=== PATIENT | female | born 1975 | race Caucasian/White ===

== ENCOUNTER 2022-05-23 14:38 | Emergency (ER) | payer BC, SELFPAY ==
[2022-05-23 16:03] VITALS: BP 0/0; PULSE 0; RESP 0; TEMP -17.7; TEMP 0
== END 2022-05-23 16:04 | disposition left against medical advice (07) ==
LOC: UTC 14:40
PROVIDERS: Emergency Provider Nurse Practitioner Family; PCP Nurse Practitioner Family
DX: Z53.21 Procedure and treatment not carried out due to patient leaving prior to being seen by health care provider (principal)